=== PATIENT | female | born 1960 | race Caucasian/White ===

== ENCOUNTER → 2022-06-16 | Day surgery (SDC) | payer OTHER ==
[~2022-06-16] VITALS: Ht 170.2 cm; Wt 73.5 kg
[~2022-06-16] MED LIST: DICLOFENAC SODI75 MG PO; LEVOTHYROXINE88 MCG PO; OXYBUTYNIN CHLOR5 M1 PO; SERTRALINE HCL100 MG PO
[2022-06-16 08:55] LABS: HCT 41.7 % (37.0-47.0); HGB 13.7 g/dl (12.5-16.0); MCHC 32.9 g/dL (32.0-36.0); MCV 91.2 fL (78.0-100.0); MPV 11.8 fL (6.0-9.5); RBC 4.57 M/uL (4.20-5.40); RDW 12.8 % (11.5-14.0); WBC 4.2 K/uL (4.0-10.5)
[2022-06-16 09:41] LABS: ALBUMIN 3.8 g/dL (3.4-5.0); BILIRUBIN - TOTAL 0.4 mg/dL (0.2-1.0); BUN/CREAT RATIO (CALC) 17.5 RATIO; CREATININE 0.63 mg/dL (0.51-0.95); GLOBULIN (CALCULATION) 2.8 g/dL; POTASSIUM 4.1 mmol/L (3.5-5.1); TOTAL PROTEIN 6.6 g/dL (6.4-8.2)
== END | disposition home or self-care (01) ==
LOC: FAS 08:21
PROVIDERS: Orthopaedic Surgery
DX: M75.121 Complete rotator cuff tear or rupture of right shoulder, not specified as traumatic (principal); M77.9 Enthesopathy, unspecified; M75.51 Bursitis of right shoulder; S43.431A Superior glenoid labrum lesion of right shoulder, initial encounter; Z88.0 Allergy status to penicillin
CPT/HCPCS: 36415; 71045; 80053; 93005; C1713; J0171; J1100; J2250; J2405; J2704; J2795; J3010; J7120